=== PATIENT | female | born 1940 | race Caucasian/White ===

== ENCOUNTER 2020-01-03 10:02 | Day surgery (SDC) | payer MEDICARE ==
--- NOTE | 2019-12-29 09:18 | HP ---
AMENDED REPORT NOW INCLUDES DESIGNATED COSIGNER - ESIGNED BEFORE ADJUSTMENTS PREOPERATIVE HISTORY AND PHYSICAL: DATE OF SURGERY/ADMISSION: 01/03/20 DATE OF OFFICE VISIT/ENCOUNTER: 12/28/19 ATTENDING SURGEON: Lavinia Colon MD * (DICTATED BY TOMASZ TAN) PROCEDURE: Open reduction internal fixation, left wrist. HISTORY OF PRESENT ILLNESS: This is a 79-year-old female who sustained injury to her left wrist on 12/08/19 when she slipped on some ice on the sidewalk and fell on an outstretched left hand. X-rays showed a distal radius fracture, extraarticular. She was initially treated in a short arm cast. Unfortunately, followup x-rays show loss of reduction with some collapse of the radius and dorsal displacement of the distal fracture fragment. The patient was offered surgery in the form of an open reduction internal fixation and she would like to proceed. This is her nondominant hand. She is very active riding a bike, and oftentimes this is her main mode of transportation. PAST MEDICAL HISTORY: 1. Hypertension. 2. Hypercholesterolemia. 3. Aortic stenosis with a murmur. PAST SURGICAL HISTORY: 1. Tonsillectomy. 2. Bilateral cataract removal. MEDICATIONS: 1. Align 4 mg daily. 2. Calcium 600 mg 2 daily. 3. Lisinopril 20 mg daily. 4. Loratadine 10 mg daily. 5. Multivitamin daily. 6. Simvastatin 20 mg daily. ALLERGIES: HYDROCHLOROTHIAZIDE causes a rash. FAMILY MEDICAL HISTORY: Heart disease, hypertension. SOCIAL HISTORY: The patient is retired. She was formerly employed in [employer] at [place]. She denies tobacco use, recreational drug use, and does not drink alcohol. REVIEW OF SYSTEMS: Negative for general, cephalic, cardiovascular, respiratory , GI, other musculoskeletal, integumentary, endocrine, neurologic, and hematologic symptoms. Infectious Disease: Negative for MRSA, hepatitis C, HIV. PHYSICAL EXAMINATION GENERAL: Well-developed, well-nourished 79-year-old female, in no acute distress. VITAL SIGNS: Height 5 feet 2 inches, weight 175 pounds. Pulse rate 84, blood pressure 142/76. HEENT: Normocephalic, atraumatic. Pupils are equal, round, and reactive to light and accommodation. Extraocular movements are intact. Throat is clear. NECK: Supple. No palpable lymph nodes. PULMONARY: Lungs are clear to auscultation bilaterally. No wheezes, rales, or rhonchi. CARDIOVASCULAR: Regular rate and rhythm. S1, S2. Murmur detected on auscultation. No rubs or gallops. No edema. ABDOMEN: Positive bowel sounds, soft, nontender. MUSCULOSKELETAL: On exam of her left upper extremity, her arm is enclosed in a short arm cast. She has no significant swelling in her fingers. She has good motion in her fingers, and sensation and circulation are intact. NEUROLOGIC: Alert and oriented x3. Cranial nerves II through XII are intact. Sensation is intact to light touch. IMAGING STUDIES: X-rays, AP and lateral, of the left wrist show a slightly displaced angulated fracture at the distal radius with increased displacement when compared to original films. IMPRESSION: Left distal radius fracture. PLAN: The patient is scheduled to undergo an open reduction internal fixation, left wrist, with Dr. Colon on 01/03/20. She will return to the office 10 days postop for followup and suture removal. A prescription for [place] was e-scribed to the patient's pharmacy for postoperative pain management. TOMASZ TAN [id number]/YENNY #: [id number] MTDD
[~2020-01-03 10:02] MED LIST: Buffered Lidocaine 1% SYRIN* 1 ML/SYRINGE INTRADERM ONE; Famotidine IV* 10 MG/ML 2 ML (20 mg) IV ONE; Famotidine IV* 10 MG/ML 2 ML (20 mg) ONE; Lactated Ringers 1000 ML Bag* 1,000 ML IV SCH
[2020-01-03] MEDS ORDERED: ceFAZolin 2 GM PREMIX in ORs 2 GM/50 ML BAG ONE (11:03)
[2020-01-03] MEDS ORDERED: Midazolam* 1 MG/ML 5 ML VIAL (5 MG) ONE (11:35)
[2020-01-03] MEDS ORDERED: Lidocaine 2% PF * 5 ML VIAL ONE (11:37)
[2020-01-03] MEDS ORDERED: Ondansetron INJ* 2 MG/ML VIAL ONE (11:37)
[2020-01-03] MEDS ORDERED: Propofol* 10 MG/ML 20 ML BTL ONE (11:37)
[2020-01-03] MEDS ORDERED: Ketorolac INJ* 30 MG/ML 1 ML VIAL ONE (11:37)
[2020-01-03] MEDS ORDERED: Bupivacaine 0.5% SDV PF* 30ML VIAL ONE (12:05)
[2020-01-03] MEDS ORDERED: KETAMINE HCL* 50 MG/ML 10 ML VIAL ONE (12:14)
[2020-01-03] MEDS ORDERED: HYDROmorphone INJ* 0.5 MG/0.5 ML SYRINGE ONE (12:23)
[2020-01-03] MEDS ORDERED: Dexamethasone IV* 4 MG/ML 1 ML (4 MG) ONE (12:26)
[2020-01-03] MEDS ORDERED: DiMENhydriNATE IV* 50 MG/ML VIAL IV PUSH PRN (13:05)
[2020-01-03] MEDS ORDERED: HYDROcodone/ACETAMIN 5-325 MG* 1 TAB PO PRN (13:05)
[2020-01-03] MEDS ORDERED: HYDROmorphone INJ1* 1 MG/ML SYRINGE IV PRN (13:05)
[2020-01-03] MEDS ORDERED: Naloxone* 0.4 MG/ML 1 ML VIAL IV PRN (13:05)
[2020-01-03] MEDS ORDERED: EPHEDrine (Pressors)* 50 MG/ML VIAL ONE (13:20)
[2020-01-03 13:41] VITALS: BP 128/58
--- NOTE | 2020-01-04 00:45 | OP ---
DATE OF OPERATION: 01/03/20 [facility] DATE OF : 40 SURGEON: Lavinia Colon MD FRAUD EXAMINER: TOMASZ Abbott ANESTHESIA: General. PRE-OP DIAGNOSIS: Distal radius fracture on the left, comminuted and displaced. POST-OP DIAGNOSIS: Distal radius fracture on the left, comminuted and displaced. OPERATIVE PROCEDURE: Open reduction and internal fixation of the left distal radius. ESTIMATED BLOOD LOSS: Zero. TOURNIQUET TIME: About 40 minutes. INDICATIONS FOR PROCEDURE: Chip is a 79-year-old female who suffered a fracture of her distal radius, intraarticular and comminuted. There are 2 articular fragments. She lost reduction after initial good position, presents for ORIF of the left distal radius. DESCRIPTION OF PROCEDURE: The patient was brought to the operating room, was given a general anesthetic and placed in the supine position on the operating table with a tourniquet around her left upper arm. The skin of her left upper extremity was prepped and draped in the usual sterile fashion. The upper extremity was exsanguinated and the tourniquet elevated to 250 mmHg. A longitudinal incision was made over the FCR tendon and we dissected through the subcutaneous tissue down to the FCR tendon sheath. The superficial and deep portions of the sheath were incised longitudinally and then the FPL muscle and tendon were retracted ulnarly. The pronator quadratus was incised and subperiosteally dissected off of the distal radius. The fracture fragments were then reduced and secured with a plate from the [employer] distal radius variable angle set with 4 distal screws and 3 proximal screws. The position of the hardware and fracture fragments was checked on the C- arm in the AP and lateral views and found to be satisfactory. The wound was irrigated. The pronator quadratus was repaired over the plate with 2-0 Vicryl suture. The FCR tendon sheath was repaired with 2-0 Vicryl suture and the skin edges were reapproximated with 4-0 nylon suture. The wound was dressed with Xeroform, 4x4 , Webril, and a volar splint. The patient tolerated the procedure well and was brought to the recovery room in good condition. [id number]/[facility] #: [id number] [facility]
== END 2020-01-03 14:45 | disposition home or self-care (01) ==
LOC: OREAST 10:02
PROVIDERS: ATTEND Orthopaedic Surgery
DX: S52.552D Other extraarticular fracture of lower end of left radius, subsequent encounter for closed fracture with routine healing (principal); I10 Essential (primary) hypertension; E78.00 Pure hypercholesterolemia, unspecified; I35.0 Nonrheumatic aortic (valve) stenosis; R01.1 Cardiac murmur, unspecified; M15.9 Polyosteoarthritis, unspecified; W00.2XXD Other fall from one level to another due to ice and snow, subsequent encounter; Z88.8 Allergy status to other drugs, medicaments and biological substances
CPT/HCPCS: 76000; C1713; C1776; J0690; J1100; J1170; J1885; J2250; J2405; J2704; J3490